=== PATIENT | female | born 1975 | race Caucasian/White ===

== ENCOUNTER 2021-10-20 05:50 | Emergency (ER) | payer OTHER ==
[~2021-10-20] VITALS: Ht 167.6 cm; Wt 68.6 kg
[2021-10-20 05:55] VITALS: TEMP 97.5
[2021-10-20 06:20] VITALS: BP 137/76; PULSE 73
[2021-10-21] MEDS ORDERED: NORCO 325 MG-51 TAB PO (11:35)
== END 2021-10-20 06:20 | disposition home or self-care (01) ==
LOC: COL.ER 05:50
DX: K08.89 Other specified disorders of teeth and supporting structures (principal)

== ENCOUNTER 2021-10-21 10:49 | Emergency (ER) | payer OTHER ==
[~2021-10-21] VITALS: Ht 167.6 cm; Wt 68.6 kg
[2021-10-21 10:56] VITALS: BP 150/85; TEMP 97.8
[2021-10-21] MEDS ORDERED: NORCO 325 MG-51 TAB PO (11:35)
[2021-10-21 13:20] VITALS: PULSE 72
== END 2021-10-21 12:29 | disposition home or self-care (01) ==
LOC: COL.ER 10:49
DX: K08.89 Other specified disorders of teeth and supporting structures (principal); Z88.0 Allergy status to penicillin

== ENCOUNTER 2022-03-02 21:19 | Emergency (ER) | payer OTHER ==
[~2022-03-02] VITALS: Ht 165.1 cm; Wt 68.2 kg
[~2022-03-02 21:19] MED LIST: NORCO 325 MG-51 TAB PO
[2022-03-02 21:22] VITALS: TEMP 97.3
[2022-03-02] MEDS ORDERED: CLEOCIN HCL300 MG PO (21:46)
[2022-03-02 21:55] VITALS: BP 122/78; PULSE 76
== END 2022-03-02 21:55 | disposition home or self-care (01) ==
LOC: COL.ER 21:19
DX: K08.89 Other specified disorders of teeth and supporting structures (principal)

== ENCOUNTER → 2023-01-22 | Outpatient (CLI) | payer OTHER ==
[~2023-01-22] MED LIST changes: +CLEOCIN HCL300 MG PO
== END ==
LOC: MC.RAD 13:41
DX: N64.4 Mastodynia (principal); R23.4 Changes in skin texture